=== PATIENT | female | born 1935 | race Caucasian/White ===

== ENCOUNTER 2017-10-30 20:08 | Inpatient (IN) | payer MEDICARE ==
[2017-10-30] MEDS ORDERED: Sodium Chloride 0.9% 10 ML Syringe FLUSH PRN (20:21)
--- NOTE | 2017-10-30 20:32 | EDM.PDOC ---
ED HPI GENERAL MEDICAL PROBLEM - General Chief Complaint: Respiratory Problem Stated Complaint: ILLNESS Time Seen by Provider: 10/30/17 20:15 Source of Information: Reports: Patient, Family, Old Records, RN History Limitations: Reports: No Limitations - History of Present Illness INITIAL COMMENTS - FREE TEXT/NARRATIVE: 82 yo female with a hx of valvular heart dz and a previous CVA(retinal artery occlusion) presents with dizziness and SOB that came on late in the day today. She had an appt at the clinic earlier today was was fine at that time. Apparently got her current symptoms during or after going out to get the mail. She denies CP, fever, cough, wheezing, or any hx of either lung dz or CHF. She denies any pain with breathing or any calf pain or LE swelling. Is here with her daughter. Onset: Today Onset Date: 10/30/17 Onset Time: 19:15 Duration: Hour(s): (1), Constant Quality: Reports: Other (no pain) Severity: Moderate Improves with: Reports: Rest Worsens with: Reports: Movement Context: Reports: Other (Was her normal well self earlier today and had normal vitals at the time of her clinic appt.) Associated Symptoms: Reports: Shortness of Breath, Other (dizzy). Denies: Chest Pain, Cough, Fever/Chills Treatments ONCOLOGY PHARMACIST: Reports: Other (see below) (none) - Related Data Allergies Allergy/AdvReac Type Severity Reaction Status Date / Time No Known Allergies Allergy Verified 10/30/17 20:19 Home Meds: Home Meds Aspirin 81 mg PO DAILY 10/30/17 [History] Calcium Carb/Vitamin D3/Vit K1 [Calcium + Vit D & K Chew] 1 tab PO DAILY [History] Lisinopril/Hydrochlorothiazide [Lisinopril-Hctz 20-25 mg Tab] 1 tab PO DAILY [History] Nabumetone [Relafen] 500 mg PO BID 10/30/17 [History] Oxybutynin Chloride [Ditropan Xl] 0.5 tab PO DAILY 10/30/17 [History] Simvastatin 10 mg PO DAILY 10/30/17 [History] predniSONE [Prednisone] 15 mg PO DAILY 10/30/17 [History] Past Medical History HEENT History: Reports: Cataract Cardiovascular History: Reports: Hypertension [employer] History: Reports: Musculoskeletal History: Reports: Arthritis - Past Surgical History Other HEENT Surgeries/Procedures: left eye stroke 2017 Musculoskeletal Surgical History: Reports: Knee Replacement Social & Family History - Tobacco Use Smoking Status *Q: Never Smoker - Caffeine Use Caffeine Use: Reports: Coffee - Recreational Drug Use Recreational Drug Use: No ED ROS GENERAL - Review of Systems Review Of Systems: See Below Constitutional: Reports: No Symptoms HEENT: Reports: No Symptoms Respiratory: Reports: No Symptoms Cardiovascular: Reports: No Symptoms Endocrine: Reports: No Symptoms GI/Abdominal: Reports: No Symptoms : Reports: No Symptoms Musculoskeletal: Reports: No Symptoms Skin: Reports: No Symptoms Neurological: Reports: No Symptoms Psychiatric: Reports: No Symptoms Hematologic/Lymphatic: Reports: No Symptoms ED EXAM, GENERAL - Physical Exam Exam: See Below Exam Limited By: No Limitations General Appearance: Alert, WD/WN, No Apparent Distress Eye Exam: Bilateral Eye: EOMI, Normal Inspection, PERRL Ears: Normal External Exam, Normal Canal, Hearing Grossly Normal Ear Exam: Bilateral Ear: Auricle Normal, Canal Normal Nose: Normal Inspection, Normal Mucosa, No Blood Throat/Mouth: Normal Inspection, Normal Lips, Normal Oropharynx, Normal Voice, No Airway Compromise Head: Atraumatic, Normocephalic Neck: Normal Inspection, Supple, Non-Tender Respiratory/Chest: No Respiratory Distress, Lungs Clear, Normal Breath Sounds, No Accessory Muscle Use Cardiovascular: Regular Rate, Rhythm, No Edema, Tachycardia GI/Abdominal: Normal Bowel Sounds, Soft, Non-Tender, No Distention Back Exam: Normal Inspection. No: CVA Tenderness (R), CVA Tenderness (L) Extremities: Normal Inspection, Normal Range of Motion, Non-Tender, No Pedal Edema Neurological: Alert, Oriented, CN II-XII Intact, Normal Cognition, No Motor/ Sensory Deficits Psychiatric: Normal Affect, Normal Mood Skin Exam: Warm, Dry, Intact, Normal Color, No Rash Lymphatic: No Adenopathy EKG INTERPRETATION EKG Date: 10/30/17 Time: 21:30 Rhythm: NSR Rate (Beats/Min): 107 [place]: Normal P-Wave: Present QRS: Normal ST-T: Normal QT: Normal Comparison: NA - No Prior EKG Course - Vital Signs Text/Narrative:: Dr. Galicia called @ 5163h Last Recorded V/S: Last Vital Signs Temp 30.2 C L 10/30/17 20:15 Pulse 104 H 10/30/17 20:55 Resp 18 10/30/17 20:55 BP 110/82 10/30/17 20:55 Pulse Ox 95 10/30/17 20:55 - Orders/Labs/Meds Orders: Active Orders 24 hr Category Date Time Status Cardiac Monitoring [RC] .As Directed Care 10/30/17 20:21 Active EKG Documentation Completion [RC] ASDIRECTED Care 10/30/17 21:23 Ordered Oxygen Therapy Adult [Oxygen Therapy, ED] [RC] Care 10/30/17 20:21 Active ASDIRECTED Ang Chest [CT] Stat Exams 10/30/17 21:14 Ordered Chest 1V Frontal [CR] Stat Exams 10/30/17 20:26 Taken UA W/MICROSCOPIC [URIN] Stat Lab 10/30/17 20:26 Ordered Lactated Ringers [Ringers, Lactated] 1,000 ml Med 10/30/17 21:15 Active IV ASDIRECTED Sodium Chloride 0.9% [Saline Flush] Med 10/30/17 20:21 Active 10 ml FLUSH ASDIRECTED PRN Saline Lock Insert [OM.PC] Routine Oth 10/30/17 20:21 Ordered EKG 12 Lead [EK] Routine Ther 10/30/17 21:22 Ordered Medication Orders Lactated Ringer's (Ringers, Lactated) 1,000 mls @ 500 mls/hr IV ASDIRECTED JULIAN Last Admin: 10/30/17 21:34 Dose: 500 mls/hr Sodium Chloride (Saline Flush) 10 ml FLUSH ASDIRECTED PRN PRN Reason: Keep Vein Open Last Admin: 10/30/17 20:29 Dose: 10 ml Labs: Laboratory Tests 10/30/17 10/30/17 10/30/17 Range/Units 20:40 20:40 20:40 WBC 10.3 (4.5-11.0) K/uL RBC 5.00 (3.30-5.50) M/uL Hgb 14.2 (12.0-15.0) g/dL Hct 44.5 (36.0-48.0) % MCV 89 (80-98) fL MCH 28 (27-31) pg MCHC 32 (32-36) % Plt Count 187 (150-400) K/uL D-Dimer, Quantitative > 5000 H (0.0-400.0) ng/mL Sodium 138 L (140-148) mmol/L Potassium 4.3 (3.6-5.2) mmol/L Chloride 98 L (100-108) mmol/L Carbon Dioxide 24 (21-32) mmol/L Anion Gap 20.3 H (5.0-14.0) mmol/L BUN 22 H (7-18) mg/dL Creatinine 1.6 H (0.6-1.0) mg/dL Est Cr Clr Drug Dosing 19.81 mL/min Estimated GFR (MDRD) 31 L (>60) Glucose 243 H (74-106) mg/dL Calcium 9.2 (8.5-10.1) mg/dL Troponin I 1.572 H* (0.000-0.056) ng/mL Meds: Medications Generic Name Dose Route Start Last Admin Trade Name Freq PRN Reason Stop Dose Admin Lactated Ringer's 1,000 mls @ 500 mls/hr 10/30/17 21:15 10/30/17 21:34 Ringers, Lactated IV 500 mls/hr ASDIRECTED JULIAN Administration Sodium Chloride 10 ml 10/30/17 20:21 10/30/17 20:29 Saline Flush FLUSH 10 ml ASDIRECTED PRN Administration Keep Vein Open - Radiology Interpretation Free Text/Narrative:: CXR-negative Angio Chest- CT Results Date: 10/30/17 Departure - Departure Time of Disposition: 21:45 Disposition: Admitted As Inpatient 66 Condition: Serious Clinical Impression: Elevated troponin I level, Hypoxia Pulmonary embolism Qualifiers: Pulmonary embolism type: other Chronicity: acute Acute cor pulmonale presence: without acute cor pulmonale Qualified Code(s): I26.99 - Other pulmonary embolism without acute cor pulmonale - Discharge Information *PRESCRIPTION DRUG MONITORING PROGRAM REVIEWED*: Not Applicable *COPY OF PRESCRIPTION DRUG MONITORING REPORT IN PATIENT TAPAN: Not Applicable Referrals: Maura Ceron CNM [Primary Care Provider] - Forms: ED Department Discharge - My Orders Last 24 Hours: My Active Orders 10/30/17 20:21 Cardiac Monitoring [RC] .As Directed Oxygen Therapy Adult [Oxygen Therapy, ED] [RC] ASDIRECTED Sodium Chloride 0.9% [Saline Flush] 10 ml FLUSH ASDIRECTED PRN Saline Lock Insert [OM.PC] Routine 10/30/17 20:26 Chest 1V Frontal [CR] Stat UA W/MICROSCOPIC [URIN] Stat 10/30/17 21:14 Ang Chest [CT] Stat 10/30/17 21:15 Lactated Ringers [Ringers, Lactated] 1,000 ml IV ASDIRECTED 10/30/17 21:22 EKG 12 Lead [EK] Routine 10/30/17 21:23 EKG Documentation Completion [RC] ASDIRECTED - Assessment/Plan Last 24 Hours: My Active Orders 10/30/17 20:21 Cardiac Monitoring [RC] .As Directed Oxygen Therapy Adult [Oxygen Therapy, ED] [RC] ASDIRECTED Sodium Chloride 0.9% [Saline Flush] 10 ml FLUSH ASDIRECTED PRN Saline Lock Insert [OM.PC] Routine 10/30/17 20:26 Chest 1V Frontal [CR] Stat UA W/MICROSCOPIC [URIN] Stat 10/30/17 21:14 Ang Chest [CT] Stat 10/30/17 21:15 Lactated Ringers [Ringers, Lactated] 1,000 ml IV ASDIRECTED 10/30/17 21:22 EKG 12 Lead [EK] Routine 10/30/17 21:23 EKG Documentation Completion [RC] ASDIRECTED
[2017-10-30] MEDS ORDERED: Lactated Ringers 1,000 ML IV SCH (21:15)
[2017-10-30] MEDS ORDERED: Enoxaparin 80 MG/0.8 ML Syringe SUBCUT STA (21:47)
[2017-10-30] MEDS ORDERED: Acetaminophen 325 MG Tab PO PRN (22:22)
[2017-10-30] MEDS ORDERED: Enoxaparin 80 MG/0.8 ML Syringe SUBCUT SCH (22:30)
[2017-10-31] MEDS: Lactated Ringers 1,000 ML IV SCH ×2 (00:20→07:48)
[2017-10-31] MEDS ORDERED: diphenhydrAMINE 25 MG Cap PO PRN (00:43)
--- NOTE | 2017-10-31 01:40 | HP ---
CHIEF COMPLAINT: Shortness of breath. HISTORY OF PRESENT ILLNESS: This is an 82-year-old, who was feeling well up until she went to go get the mail, which is a fairly long walk. She started getting short of breath. No chest pain. The shortness of breath did not improve. She talked to her daughter, and was brought in for further evaluation. She was evaluated by the Emergency Room physician, and was noted to be hypoxic with an elevated D-dimer. She did have elevated renal function, which she has not had in the past. Because of this, we could not do a CT scan. I was asked to admit the patient for further evaluation and treatment, suspecting pulmonary emboli. Her other complaint was some lightheadedness, although no chest pain. She did complain of some upper abdominal pain, but no nausea. She states that she feels like she is a little bit constipated today, although she states that the pain now is better. PAST MEDICAL HISTORY: 1. She had retinal artery occlusion or temporal arteritis, and did lose the vision in her eyes. She is supposed to be having cataract surgery later in the week. 2. Essential hypertension. 3. Hyperlipidemia. 4. Urinary incontinence. 5. Osteoarthritis, especially of her knee. MEDICATIONS: 1. Aspirin 81 mg daily. 2. Calcium with vitamin D. 3. Lisinopril/hydrochlorothiazide 20/25 daily. 4. Relafen 500 mg b.i.d. 5. Oxybutynin 5 mg half a tablet daily. 6. Prednisone 15 mg daily. 7. Simvastatin 10 mg daily. ALLERGIES: NO KNOWN DRUG ALLERGIES. SOCIAL HISTORY: She is a non-smoker. No alcohol use. FAMILY HISTORY: Noncontributory. REVIEW OF SYSTEMS: HEENT: She denies headaches or vision changes other than her chronic vision changes with the loss of vision, with left eye blindness. CHEST: She denies any upper respiratory symptoms. She does have lightheadedness. No chest pain, but does feel short of breath. GASTROINTESTINAL: No nausea, but has had some upper abdominal discomfort, although it is better. She feels like she is a little bit constipated. GENITOURINARY: No new urinary problems, but it looks like she does have chronic incontinence. No dysuria. EXTREMITIES: No swelling in her legs or pain in her legs. DERMATOLOGIC: No skin problems. NEUROLOGICAL: No neurologic complaints were reported. OBJECTIVE: VITAL SIGNS: Pulse of 108 to 117, blood pressure of 118/92, respirations of 18, and O2 saturation of 92% to 95%, on 4 L per nasal cannula. THROAT: Pharynx is clear. NECK: Supple. No adenopathy, thyromegaly, jugular venous distention, or carotid bruits. LUNGS: Clear. HEART: Regular without murmurs. ABDOMEN: Soft. She had some mild upper abdominal discomfort. No distention. No masses or organomegaly was palpated. EXTREMITIES: No edema. No pain in her calf. Homans sign is negative. SKIN: Negative. NEUROLOGICAL: Other than blindness in her left eye, cranial nerves II through XII are grossly intact. She moves all extremities equally. She seems to be alert and oriented. LABORATORY DATA AND DIAGNOSTIC STUDIES: Her screening chest x-ray was unremarkable, await Radiological interpretation. EKG showed sinus tachycardia with no significant ST-segment elevation or depression seen. No other dysrhythmias are seen. White count of 10.3, hemoglobin of 14.2, and platelets of 187,000. D-dimer was greater than 5000. Sodium is 138, potassium is 4.3, chloride is 98, BUN is 22, creatinine is 1.6, estimated GFR is 31, and glucose is 243. Troponin was 1.572. ASSESSMENT AND PLAN: 1. Hypoxia with elevated D-dimer, possibility of pulmonary emboli. The patient has been started on subcutaneous Lovenox in the emergency room, which we will continue every 12 hours. We will transfer care to the Hospitalist Service in the morning and see what type of oral anticoagulation she will be transitioned to. Continue with oxygen and watch her on telemetry. 2. Renal insufficiency, which has not been a past medical problem of hers. We will give her IV fluids overnight and see if her renal function improves, so that we could do a CT scan tomorrow. 3. Elevated blood sugar with no report of any diabetes. 4. Recent left retinal arterial occlusion. 5. Essential hypertension. 6. Hyperlipidemia. 7. Osteoarthritis, on Relafen, which we will put on hold because of renal insufficiency. We will admit her as an inpatient, and anticipate more than two midnight stays. Vladimir Galicia MD /[id number]
--- NOTE | 2017-10-31 08:36 | CR ---
CHEST: Portable CLINICAL HISTORY:SOB COMPARISON:CT 2016 FINDINGS: Heart size and pulmonary vascularity are normal. There are atherosclerotic changes in the aorta. There is some streaky density in the right suprahilar region. Some of this is due to patient r otation.. No infiltrates are seen Impression: Streaky density in the right suprahilar region is likely some superimposition of the slim hilar structures due to rotation No acute cardiopulmonary process
[2017-10-31] MEDS ORDERED: Lisinopril 20 MG Tab PO SCH (09:00)
[2017-10-31] MEDS ORDERED: predniSONE 10 MG Tab PO SCH (09:00)
[2017-10-31] MEDS ORDERED: Simvastatin 20 MG Tab PO SCH ×2 (09:00→17:00)
[2017-10-31] MEDS ORDERED: Aspirin 81 MG Tab.Chew PO SCH (09:00)
[2017-10-31] MEDS ORDERED: Hydrochlorothiazide 25 MG Tab PO SCH (09:00)
[2017-10-31] MEDS ORDERED: predniSONE 10 MG, predniSONE 5 MG PO SCH ×2 (09:00)
[2017-10-31] MEDS ORDERED: Oxybutynin 5 MG Tab PO SCH ×2 (09:00)
--- NOTE | 2017-10-31 09:41 | PCM.DCSUM1 ---
Discharge Summary - Hospital Course Brief History: 82-year-old female with history of hypertension and temporal arteritis who presented with shortness of breath. She was found to have an elevated d-dimer and troponin. She was admitted for management of suspected pulmonary embolism. Diagnosis: Stroke: No - Discharge Data Discharge Date: 10/31/17 Discharge Disposition: DC/Tfer to Acute Hospital 02 Condition: Fair - Discharge Diagnosis/Problem(s) (1) NSTEMI (non-ST elevated myocardial infarction) SNOMED Code(s): 796659412 ICD Code: I21.4 - NON-ST ELEVATION (NSTEMI) MYOCARDIAL INFARCTION Status: Acute Current Visit: Yes (2) Acute kidney injury SNOMED Code(s): 93209917 ICD Code: N17.9 - ACUTE KIDNEY FAILURE, UNSPECIFIED Status: Acute Current Visit: Yes - Patient Summary/Data Hospital Course: Tammy presented to the emergency room last night with shortness of breath after a walk. Initial workup in the emergency room revealed an elevated d-dimer at more than 5000 as well as a troponin of 1.5. Her creatinine was 1.6 with a GFR of around [address] scan to look for pulmonary embolism was not performed. Initial EKG showed mild ST depressions in 1, aVL as well as V4 through V6 but no ST elevations were noted. It was thought that the troponin was related to the suspected pulmonary embolism the patient was started on enoxaparin and admitted to the hospital. Repeat troponin several hours later was elevated at 5.1 and a repeat troponin several hours after that remained elevated at greater than 5. repeat EKG the morning after admission appeared similar to the one from the night before. The patient has not had any chest pain or discomfort but she has been very short of breath. She was initially tachycardic around 120 and her heart rate the next morning was around 90. Her GFR has improved to around 40 with some IV fluids overnight. I'm concerned that she's having a non-ST elevation myocardial infarction and have recommended that she be transferred to the hospital with cardiology consultation capabilities. D-dimer is a possibility but with that significant troponin elevation I think that an acute myocardial infarction needs to be evaluated sooner rather than later. I discussed the case with Dr. Blevins in [place]. The patient will be transferred by ambulance for further evaluation. Also noted at presentation was a urine sample that did suggest infection with positive leukocyte esterase, moderate white blood cells and many bacteria. Urine culture was not set up unfortunately. She did receive a dose of ceftriaxone the morning after admission. Patient is not having symptoms and has not had any fevers. - Patient Instructions Diet: NPO Activity: Bedrest Notify Provider of: Fever, Increased Pain Other/Special Instructions: 1. You were admitted to the hospital for management of suspected blood clots in your lungs. Based on the laboratory testing and EKG changes I am concerned that you are having a heart attack. I recommend that you be transferred to [facility] in [place] for cardiology evaluation and further workup. - Discharge Plan *PRESCRIPTION DRUG MONITORING PROGRAM REVIEWED*: Not Applicable *COPY OF PRESCRIPTION DRUG MONITORING REPORT IN PATIENT TAPAN: Not Applicable Home Medications: Home Meds Aspirin 81 mg PO DAILY 10/30/17 [History] Calcium Carb/Vitamin D3/Vit K1 [Calcium + Vit D & K Chew] 1 tab PO DAILY [History] Lisinopril/Hydrochlorothiazide [Lisinopril-Hctz 20-25 mg Tab] 1 tab PO DAILY [History] Nabumetone [Relafen] 500 mg PO BID 10/30/17 [History] Simvastatin 10 mg PO DAILY 10/30/17 [History] predniSONE [Prednisone] 15 mg PO DAILY 10/30/17 [History] Oxybutynin 2.5 mg PO DAILY 10/31/17 [History] Patient Handouts: Non-ST Segment Elevation Heart Attack Referrals: Maura Ceron CNM [Primary Care Provider] - (as needed after the hospital stay ) - Discharge Summary/Plan Comment DC Time >30 min.: Yes (60 - transfer to acute Hospital) - Patient Data Vitals - Most Recent: Last Vital Signs Temp 36.1 C 10/31/17 07:25 Pulse 94 10/31/17 07:25 Resp 24 H 10/31/17 07:25 BP 141/67 H 10/31/17 07:25 Pulse Ox 90 L 10/31/17 07:26 Weight - Most Recent: 70.307 kg I&O - Last 24 hours: Intake & Output 10/30/17 10/31/17 10/31/17 22:59 06:59 14:59 Intake Total 616 240 Balance 616 240 Lab Results - Last 24 hrs: Laboratory Results - last 24 hr 10/30/17 10/30/17 10/30/17 Range/Units 07:31 20:40 20:40 WBC 10.3 (4.5-11.0) K/uL RBC 5.00 (3.30-5.50) M/uL Hgb 14.2 (12.0-15.0) g/dL Hct 44.5 (36.0-48.0) % MCV 89 (80-98) fL MCH 28 (27-31) pg MCHC 32 (32-36) % Plt Count 187 (150-400) K/uL D-Dimer, Quantitative (0.0-400.0) ng/mL Sodium 138 L (140-148) mmol/L Potassium 4.3 (3.6-5.2) mmol/L Chloride 98 L (100-108) mmol/L Carbon Dioxide 24 (21-32) mmol/L Anion Gap 20.3 H (5.0-14.0) mmol/L BUN 22 H (7-18) mg/dL Creatinine 1.6 H (0.6-1.0) mg/dL Est Cr Clr Drug Dosing 19.81 mL/min Estimated GFR (MDRD) 31 L (>60) Glucose 243 H (74-106) mg/dL Calcium 9.2 (8.5-10.1) mg/dL Troponin I 1.572 H* (0.000-0.056) ng/mL Urine Color Red Urine Appearance Turbid Urine pH 5.0 (4.5-8.0) Ur Specific [place] 1.020 (1.008-1.030) Urine Protein 100 H (NEGATIVE) mg/dL Urine Glucose (UA) Normal (NEGATIVE) mg/dL Urine Ketones 15 H (NEGATIVE) mg/dL Urine Occult Blood Large (NEGATIVE) Urine Nitrite Negative (NEGATIVE) Urine Bilirubin Negative (NEGATIVE) Urine Urobilinogen Normal (NORMAL) mg/dL Ur Leukocyte Esterase Large (NEGATIVE) Urine RBC Packed H (0-5) Urine WBC 40-50 H (0-5) Ur Epithelial Cells Few Amorphous Sediment Not seen Urine Bacteria Many Urine Mucus Not seen 10/30/17 10/31/17 10/31/17 Range/Units 20:40 02:00 05:11 WBC 11.5 H (4.5-11.0) K/uL RBC 4.28 (3.30-5.50) M/uL Hgb 12.2 D (12.0-15.0) g/dL Hct 38.0 (36.0-48.0) % MCV 89 (80-98) fL MCH 29 (27-31) pg MCHC 32 (32-36) % Plt Count 151 (150-400) K/uL D-Dimer, Quantitative > 5000 H (0.0-400.0) ng/mL Sodium (140-148) mmol/L Potassium (3.6-5.2) mmol/L Chloride (100-108) mmol/L Carbon Dioxide (21-32) mmol/L Anion Gap (5.0-14.0) mmol/L BUN (7-18) mg/dL Creatinine (0.6-1.0) mg/dL Est Cr Clr Drug Dosing mL/min Estimated GFR (MDRD) (>60) Glucose (74-106) mg/dL Calcium (8.5-10.1) mg/dL Troponin I 5.135 H* (0.000-0.056) ng/mL Urine Color Urine Appearance Urine pH (4.5-8.0) Ur Specific Jackson (1.008-1.030) Urine Protein (NEGATIVE) mg/dL Urine Glucose (UA) (NEGATIVE) mg/dL Urine Ketones (NEGATIVE) mg/dL Urine Occult Blood (NEGATIVE) Urine Nitrite (NEGATIVE) Urine Bilirubin (NEGATIVE) Urine Urobilinogen (NORMAL) mg/dL Ur Leukocyte Esterase (NEGATIVE) Urine RBC (0-5) Urine WBC (0-5) Ur Epithelial Cells Amorphous Sediment Urine Bacteria Urine Mucus 10/31/17 Range/Units 05:11 WBC (4.5-11.0) K/uL RBC (3.30-5.50) M/uL Hgb (12.0-15.0) g/dL Hct (36.0-48.0) % MCV (80-98) fL MCH (27-31) pg MCHC (32-36) % Plt Count (150-400) K/uL D-Dimer, Quantitative (0.0-400.0) ng/mL Sodium 139 L (140-148) mmol/L Potassium 4.1 (3.6-5.2) mmol/L Chloride 102 (100-108) mmol/L Carbon Dioxide 28 (21-32) mmol/L Anion Gap 13.1 (5.0-14.0) mmol/L BUN 22 H (7-18) mg/dL Creatinine 1.3 H (0.6-1.0) mg/dL Est Cr Clr Drug Dosing 24.38 mL/min Estimated GFR (MDRD) 39 L (>60) Glucose 95 (74-106) mg/dL Calcium 8.7 (8.5-10.1) mg/dL Troponin I 5.129 H* (0.000-0.056) ng/mL Urine Color Urine Appearance Urine pH (4.5-8.0) Ur Specific [place] (1.008-1.030) Urine Protein (NEGATIVE) mg/dL Urine Glucose (UA) (NEGATIVE) mg/dL Urine Ketones (NEGATIVE) mg/dL Urine Occult Blood (NEGATIVE) Urine Nitrite (NEGATIVE) Urine Bilirubin (NEGATIVE) Urine Urobilinogen (NORMAL) mg/dL Ur Leukocyte Esterase (NEGATIVE) Urine RBC (0-5) Urine WBC (0-5) Ur Epithelial Cells Amorphous Sediment Urine Bacteria Urine Mucus Med Orders - Current: Current Medications Acetaminophen (Tylenol) 650 mg PO Q4H PRN PRN Reason: Pain (Mild 1-3)/fever Last Admin: 10/31/17 00:53 Dose: 325 mg Aspirin (Aspirin) 81 mg PO DAILY [facility] Aspirin (Aspirin) 243 mg PO ONETIME ONE Stop: 10/31/17 09:46 Diphenhydramine HCl (Benadryl) 25 - 50 mg PO Q4H PRN PRN Reason: sleep/itching Last Admin: 10/31/17 00:53 Dose: 25 mg Enoxaparin Sodium (Lovenox) 70 mg SUBCUT Q12H [facility] Last Admin: 10/30/17 23:07 Dose: Not Given Hydrochlorothiazide (Hydrochlorothiazide) 25 mg PO DAILY [facility] Lactated Ringer's (Ringers, Lactated) 1,000 mls @ 125 mls/hr IV ASDIRECTED [facility] Last Admin: 10/31/17 07:48 Dose: 125 mls/hr Lisinopril (Prinivil) 20 mg PO DAILY [facility] Oxybutynin Chloride (Oxybutynin) 2.5 mg PO DAILY [facility] Prednisone 10 mg/ Prednisone 5 (mg) 15 mg PO DAILY [facility] Simvastatin (Zocor) 10 mg PO QPM [facility] Sodium Chloride (Saline Flush) 10 ml FLUSH ASDIRECTED PRN PRN Reason: Keep Vein Open Last Admin: 10/30/17 20:29 Dose: 10 ml Discontinued Medications Enoxaparin Sodium (Lovenox) 70 mg SUBCUT NOW STA Stop: 10/30/17 21:48 Last Admin: 10/30/17 21:52 Dose: 70 mg Lactated Ringer's (Ringers, Lactated) 1,000 mls @ 500 mls/hr IV ASDIRECTED [facility] Last Admin: 10/30/17 21:34 Dose: 500 mls/hr - Exam Quality Assessment: Reports: Supplemental Oxygen General: Reports: Alert, Oriented, Cooperative, Mild Distress (increased work of breathing) Lungs: Reports: Clear to Auscultation, Normal Respiratory Effort Cardiovascular: Reports: Regular Rate, Regular Rhythm, No Murmurs GI/Abdominal Exam: Soft, No Distention Extremities: No Pedal Edema Psy/Mental Status: Reports: Alert, Normal Affect
[2017-10-31] MEDS ORDERED: Aspirin 81 MG Tab.Chew PO ONE (09:45)
[2017-10-31] MEDS ORDERED: cefTRIAXone 1 GM in Sodium Chloride 0.9% 50 ML IV ONE (10:00)
[2017-10-31] MEDS ORDERED: Enoxaparin 80 MG/0.8 ML Syringe SUBCUT SCH (21:00)
== END 2017-10-31 14:19 | DRG 281 ==
LOC: JP.ED 20:08 → JP.MS 22:22
PROVIDERS: ADMIT Family Medicine; ATTEND Internal Medicine
DX: R09.02 Hypoxemia (principal); I21.4 Non-ST elevation (NSTEMI) myocardial infarction; N17.9 Acute kidney failure, unspecified; I38 Endocarditis, valve unspecified; I10 Essential (primary) hypertension; N28.9 Disorder of kidney and ureter, unspecified; R82.99 Other abnormal findings in urine; R42 Dizziness and giddiness; R06.02 Shortness of breath; R74.8 Abnormal levels of other serum enzymes; R73.9 Hyperglycemia, unspecified; R79.1 Abnormal coagulation profile; Z86.73 Personal history of transient ischemic attack (TIA), and cerebral infarction without residual deficits; M19.90 Unspecified osteoarthritis, unspecified site; E78.5 Hyperlipidemia, unspecified; Z96.659 Presence of unspecified artificial knee joint; H54.3 Unqualified visual loss, both eyes; R32 Unspecified urinary incontinence; Z79.82 Long term (current) use of aspirin; Z79.52 Long term (current) use of systemic steroids
CPT/HCPCS: 36415; 71045 ×2; 80048; 81001; 84484; 85027; 85379; 93005; J1650; J7050; J7120; 96360; 96361; 99285-25; A9270-GY; J0696